=== PATIENT | male | born 1990 | race Caucasian/White ===

== ENCOUNTER → 2020-10-26 | Outpatient (CLI) | payer SELFPAY | LOC: M LABSMTC 10:14 | PROVIDERS: ATTEND Pediatrics | DX: Z20.822 Contact with and (suspected) exposure to COVID-19 (principal) ==

== ENCOUNTER 2021-05-07 10:46 | Emergency (ER) | payer OTHER, SELFPAY ==
[~2021-05-07] VITALS: Ht 188 cm; Wt 149.6 kg
[2021-05-07 10:47] VITALS: BP 164/95
--- NOTE | 2021-05-07 11:37 | REPVR ---
PROCEDURE INFORMATION: Exam: CT Head Without Contrast Exam date and time: 05/07/2021 11:23 AM Age: 31 years old Clinical indication: Other: Severe BARBER w vision changes TECHNIQUE: Imaging protocol: Computed tomography of the head without contrast. Radiation optimization: All CT scans at this facility use at least one of these dose optimization techniques: automated exposure control; mA and/or kV adjustment per patient size (includes targeted exams where dose is matched to clinical indication); or iterative reconstruction. COMPARISON: No relevant prior studies available. FINDINGS: Brain: There is a left frontal convexity arachnoid cyst measuring 5.0 x 2.2 cm. There is no acute hemorrhage or mass effect. Cerebral ventricles: No ventriculomegaly. Paranasal sinuses: Visualized sinuses are unremarkable. No fluid levels. Mastoid air cells: Visualized mastoid air cells are well aerated. Bones/joints: Unremarkable. No acute fracture. Soft tissues: Unremarkable. IMPRESSION: Left frontal convexity arachnoid cyst. No acute hemorrhage or edema. Electronically signed by: Stacey Nowak On 05/07/2021 11:36:52 AM
[2021-05-07] MEDS ORDERED: MELA3TAB49 PO (12:09)
--- NOTE | 2021-05-09 08:22 | ED PDOC ---
Post-Departure Follow-Up certified letter sent to the pt re formal read of ct head. pt left without being seen. Please let pt know result and tell pt must have follow up Monie Lira MD May 09, 2021 08:22
== END 2021-05-07 13:19 | disposition left against medical advice (07) ==
LOC: M ED 10:46
DX: Z53.21 Procedure and treatment not carried out due to patient leaving prior to being seen by health care provider (principal)

== ENCOUNTER → 2021-05-28 | Outpatient (CLI) | payer OTHER ==
[~2021-05-28] MED LIST: MELA3TAB49 PO; PROHANCE 279.3MG/ML 15ML VIAL ONE; PROHANCE 279.3MG/ML 5ML VIAL ONE
--- NOTE | 2021-05-28 11:07 | REP ---
INDICATION: BARBER/S W/ VISION CHANGES. COMPARISON: None. TECHNIQUE: 3-D [id number] MR angiography of the brain is acquired in the usual fashion and maximal intensity projection images were generated in rotational format about the vertical and horizontal axes. In addition, source axial T1-weighted images are viewed in cine mode. FINDINGS: The distal vertebral arteries are patent and co-dominant. Basilar artery is a little tortuous but widely patent. The posterior cerebral and superior cerebellar vessels are normal and symmetric. The distal internal carotid arteries are unremarkable. Anterior and middle cerebral arteries appear intact. There is no visible burkett aneurysm or arteriovenous malformation. IMPRESSION: Unremarkable MR angiography the brain. <Electronically signed by Brock Salomon > 05/28/21 [id number]
--- NOTE | 2021-05-29 08:11 | REP ---
INDICATION: BARBER/S W/ VISION CHANGES. COMPARISON: Comparison is made with head CT study May 07, 2021. TECHNIQUE: Axial and sagittal imaging planes are utilized for T1 and T2-weighted scans. Sequences include spin-echo, fast spin echo, FLAIR, and diffusion weighted sequences. 20 mL of intravenous ProHance is administered and post gadolinium enhanced T1 weighted fat sat imaging is acquired in all 3 planes. FINDINGS: No bony calvarial defect is seen. There is some remodeling of the inner table of the left frontal calvarium as seen on CT study associated with the subarachnoid cyst which is again noted in the left frontal lobe region. This subarachnoid cyst measures 4.1 x 4.9 x 1.9 cm in overall dimension. It is unchanged from the recent head CT. No other extra-axial fluid collection is seen. No intracranial mass lesion is observed. No intraorbital abnormality is seen. T2 weighted scans show no evidence of significant paranasal sinus disease. Craniocervical junction and upper cervical cord are normal in appearance. Diffusion-weighted scans show no evidence of restricted diffusion to suggest acute ischemia. Diaz-white differentiation pattern is normal above and below the tentorium. There is no evidence of infarct or intracranial hemorrhage. Post gadolinium enhanced images show enhancement of normal vascular structures. No abnormal intracranial contrast enhancement is appreciated. IMPRESSION: Subarachnoid cyst noted incidentally in the left frontal lobe region as seen on recent CT study. Otherwise normal MRI study of the brain without and with IV gadolinium. <Electronically signed by Brock Salomon > 05/29/21 [id number]
== END ==
LOC: M PLAIMG 09:26
PROVIDERS: ATTEND Internal Medicine
DX: E53.8 Deficiency of other specified B group vitamins (principal); R51.9 Headache, unspecified
CPT/HCPCS: 70544; 70553; A9576

== ENCOUNTER → 2024-11-01 | Outpatient (CLI) | payer OTHER ==
[~2024-11-01] MED LIST changes: -PROHANCE 279.3MG/ML 15ML VIAL ONE; -PROHANCE 279.3MG/ML 5ML VIAL ONE
[2024-11-01 10:04] LABS: BASO % 0.4 % (0.0-1.0); EOS # 0.2 10^3/uL (0.0-0.5); EOS % 2.3 % (0.0-3.0); HEMATOCRIT 44.1 % (42.0-52.0); HEMOGLOBIN 15.1 g/dl (13.5-17.5); LYMPH # 2.9 10^3/uL (1.5-5.0); LYMPH % 37.5 % (24.0-44.0); MEAN CORPUSCULAR HEMOGLOBIN 30.8 pg (27.0-33.0); MEAN CORPUSCULAR HGB CONC 34.2 g/dl (32.0-36.5); MEAN CORPUSCULAR VOLUME 89.8 fl (80.0-96.0); MONO # 0.7 10^3/uL (0.0-0.8); MONO % 9.4 % (2.0-8.0); NEUTROPHILS # 3.9 10^3/uL (1.5-8.5); NEUTROPHILS % 50.3 % (36.0-66.0); PLATELET COUNT, AUTOMATED 352 10^3/uL (150-450); RED BLOOD COUNT 4.91 10^6/uL (4.30-6.10); WHITE BLOOD COUNT 7.7 10^3/uL (4.0-10.0)
[2024-11-01 10:36] LABS: ALBUMIN 3.7 G/DL (3.2-5.2); ALKALINE PHOSPHATASE 64 U/L (40-129); ALT/SGPT 48 U/L (7.0-40); AST/SGOT 34 U/L (<34); BILIRUBIN,TOTAL 1.3 MG/DL (0.3-1.2); BLOOD UREA NITROGEN 11 MG/DL (9-23); CALCIUM LEVEL 9.3 MG/DL (8.5-10.1); CARBON DIOXIDE LEVEL 26 MMOL/L (20-31); CHLORIDE LEVEL 106 MMOL/L (98-107); CHOLESTEROL LEVEL 147 MG/DL (<200); CHOLESTEROL RISK RATIO 4.48 (<5); CREATININE FOR GFR 1.01 MG/DL (0.70-1.30); GLOMERULAR FILTRATION RATE > 60.0 (>60); GLUCOSE, FASTING 81 MG/DL (60-100); HDL CHOLESTEROL 32.8 MG/DL (>40); LDL CHOLESTEROL 91.6 MG/DL (<100); NON-HDL-C 114.2 MG/DL; SODIUM LEVEL 142 MMOL/L (136-145); TOTAL PROTEIN 6.8 G/DL (5.7-8.2); TRIGLYCERIDES LEVEL 113 MG/DL (<150)
[2024-11-01 10:37] LABS: THYROID STIMULATING HORMONE 1.609 uIU/ML (0.55-4.78)
== END ==
LOC: M WUC 08:40
PROVIDERS: ATTEND Family Medicine
DX: Z00.00 Encounter for general adult medical examination without abnormal findings (principal); E66.9 Obesity, unspecified

== ENCOUNTER → 2024-11-03 | Outpatient (CLI) | payer OTHER | LOC: M WUC 10:30 | PROVIDERS: ATTEND Family Medicine | DX: M25.562 Pain in left knee (principal); M61.462 Other calcification of muscle, left lower leg ==

== ENCOUNTER → 2024-11-19 | Outpatient (CLI) | payer OTHER | LOC: M PLARAD 10:54 | PROVIDERS: ATTEND Family Medicine | DX: M23.92 Unspecified internal derangement of left knee (principal) ==